=== PATIENT | male | born 1990 ===

== ENCOUNTER 2023-08-03 10:14 | Outpatient (RCR) | payer OTHER, SELFPAY | END 2023-08-03 23:59 | disposition home or self-care (01) | LOC: ROT 10:14 | PROVIDERS: ATTENDING PHYSICIAN Orthopaedic Surgery Hand Surgery | DX: Z47.89 Encounter for other orthopedic aftercare (principal); S62.327D Displaced fracture of shaft of fifth metacarpal bone, left hand, subsequent encounter for fracture with routine healing; S62.325D Displaced fracture of shaft of fourth metacarpal bone, left hand, subsequent encounter for fracture with routine healing; Z73.6 Limitation of activities due to disability | CPT/HCPCS: 97010; 97022; 97110; 97140; 97166; 97530; 97535; 97760 ==

== ENCOUNTER 2023-08-24 16:00 | Outpatient (RCR) | payer OTHER, SELFPAY | END 2023-08-24 23:59 | disposition home or self-care (01) | LOC: ROT 16:00 | PROVIDERS: ATTENDING PHYSICIAN Orthopaedic Surgery Hand Surgery | DX: Z47.89 Encounter for other orthopedic aftercare (principal); S62.327D Displaced fracture of shaft of fifth metacarpal bone, left hand, subsequent encounter for fracture with routine healing; S62.325D Displaced fracture of shaft of fourth metacarpal bone, left hand, subsequent encounter for fracture with routine healing; Z73.6 Limitation of activities due to disability; M79.642 Pain in left hand | CPT/HCPCS: 97018; 97022; 97110; 97140; 97530 ==

== ENCOUNTER 2023-09-13 12:28 | Outpatient (RCR) | payer OTHER, SELFPAY | END 2023-09-23 09:20 | disposition home or self-care (01) | LOC: ROT 12:28 | PROVIDERS: ATTENDING PHYSICIAN Orthopaedic Surgery Hand Surgery | DX: S62.327D Displaced fracture of shaft of fifth metacarpal bone, left hand, subsequent encounter for fracture with routine healing (principal); S62.325D Displaced fracture of shaft of fourth metacarpal bone, left hand, subsequent encounter for fracture with routine healing; Z73.6 Limitation of activities due to disability | CPT/HCPCS: 97018; 97110 ==